=== PATIENT | female | born 1995 ===

== ENCOUNTER 2020-10-24 06:18 | Outpatient (CLI) | payer OTHER ==
[2020-10-24 10:23] VITALS: BP 104/54
== END 2020-10-24 11:15 | disposition home or self-care (01) ==
LOC: TRG 06:18 → APU 06:25 → TRG 11:15
PROVIDERS: ATTEND Obstetrics & Gynecology
DX: Z34.93 Encounter for supervision of normal pregnancy, unspecified, third trimester (principal); Z3A.38 38 weeks gestation of pregnancy
CPT/HCPCS: 59025

== ENCOUNTER 2020-10-24 21:48 | Outpatient (CLI) | payer OTHER ==
[2020-10-24 23:20] VITALS: BP 106/57
--- NOTE | 2020-10-25 00:12 | Ultrasound Report ---
ULTRASOUND OBSTETRIC LIMITED ULTRASOUND BIOPHYSICAL PROFILE INDICATION / CLINICAL INFORMATION: feb. movement. BPP, VIANEY, presentation. Clinical Gestational Age (GA) in weeks, days: 38, 5 TECHNIQUE: Transabdominal. COMPARISON: None available. FINDINGS: BREATHING MOVEMENT = 2 GROSS BODY MOVEMENT = 2 TONE = 2 QUALITATIVE AMNIOTIC FLUID VOLUME = 2 TOTAL BIOPHYSICAL SCORE = 8/8 HEART RATE (beats per minute): 132 AMNIOTIC FLUID INDEX (cm) = 15.3 (normal = 7-24 cm) PRESENTATION: Cephalic. ADDITIONAL FINDINGS: Placenta is posterior fundal. IMPRESSION: 1. Biophysical Score = 8/8 2. No acute sonographic abnormality. Signer Name: Manny Rebolledo MD Signed: 10/25/2020 12:08 AM Workstation Name: [id number]
== END 2020-10-25 00:20 | disposition home or self-care (01) ==
LOC: TRG 21:48 → APU 22:56 → TRG 10-25 00:20
PROVIDERS: ATTEND Obstetrics & Gynecology
DX: O36.8130 Decreased fetal movements, third trimester, not applicable or unspecified (principal); Z3A.38 38 weeks gestation of pregnancy
CPT/HCPCS: 59025; 76815; 76819

== ENCOUNTER 2020-10-26 05:16 | Inpatient (IN) | payer OTHER ==
[2020-10-26] MEDS ORDERED: CARBOPROST TROMETHAMINE 250 MCG/1 ML INJ IM PRN (05:43)
[2020-10-26] MEDS ORDERED: miSOPROStol 200 MCG TAB PR PRN (05:43)
[2020-10-26] MEDS ORDERED: ONDANSETRON 4 MG/2 ML INJ IV PRN (05:43)
[2020-10-26] MEDS ORDERED: AMPICILLIN/NS 2 GM/100 ML 2 GM/100 ML BAG IV ONE (05:43)
[2020-10-26] MEDS ORDERED: ACETAMINOPHEN 325 MG TAB PO PRN ×2 (05:43→07:46)
[2020-10-26] MEDS ORDERED: OXYTOCIN 10 UNIT/1 ML INJ IM PRN (05:43)
[2020-10-26] MEDS ORDERED: BUTORPHANOL 2 MG/1 ML INJ IV PRN (05:43)
[2020-10-26] MEDS ORDERED: fentaNYL 100 MCG/2 ML INJ IV PRN (05:43)
[2020-10-26] MEDS ORDERED: METHYLERGONOVINE MALEATE 0.2 MG/ML VIAL IM PRN (05:43)
[2020-10-26] MEDS ORDERED: LOPERAMIDE 2 MG CAP PO PRN (05:43)
[2020-10-26] MEDS ORDERED: MINERAL OIL 30 ML ORAL LIQD PO PRN (05:43)
[2020-10-26] MEDS ORDERED: ePHEDrine SULFATE 50 MG/1 ML INJ IV PRN (05:43)
[2020-10-26] MEDS ORDERED: TERBUTALINE 1 MG/1 ML INJ SUB-Q PRN (05:43)
[2020-10-26] MEDS ORDERED: LIDOCAINE (2%) 20 MG/1 ML VIAL 20 ML MDV INFILTRATI ONE (05:43)
[2020-10-26] MEDS ORDERED: LACTATED RINGERS 1,000 ML ONE (05:44)
[2020-10-26] MEDS ORDERED: LACTATED RINGERS 1,000 ML IV SCH (05:45)
--- NOTE | 2020-10-26 05:49 | History and Physical Report ---
History of Present Illness Date of examination: 10/26/20 Date of admission: 10/26/2020 Chief complaint: Contractions History of present illness: 25 year old presents to L&D with complaint of contractions starting at 03:00 today. Patient denies LOF or VB. Patient reports active movement. Patient states she received care at [facility] office; records are not available. Patient states her EDC is 11/02/2020. Patient states her was uncomplicated and she has a history of a vaginal . labs are not available. These will be requested from [facility] office when office opens today. Past History Past Medical History: no pertinent history Past Surgical History: other (bilateral breast augmentation) [facility] History: denies: abnormal PAP smear, chlamydia, gonorrhea, hepatitis B, hepatitis C, herpes, HIV, syphilis, trichomonas Family/Genetic History: diabetes Social history: lives with family, full code. denies: smoking, alcohol abuse, prescription drug abuse, IV drug use - Obstetrical History Expected Date of Delivery: 11/02/20 Actual Gestation: 39 Week(s) 0 Day(s) : 2 Para: 1 Hx # Term Pregnancies: 1 Number of Pregnancies: 0 Spontaneous Abortions: 0 Induced : 0 Number of Living Children: 1 Medications and Allergies Allergies Allergy/AdvReac Type Severity Reaction Status Date / Time No Known Allergies Allergy Unverified 10/24/20 07:36 Active Meds: Active Medications Acetaminophen (Acetaminophen 325 Mg Tab) 650 mg PO Q4H PRN PRN Reason: Pain, Mild (1-3) Butorphanol Tartrate (Butorphanol 2 Mg/1 Ml Inj) 1 mg IV Q2H PRN PRN Reason: Pain, Moderate(4-6) LABOR PAIN Carboprost Tromethamine (Carboprost Tromethamine 250 Mcg/1 Ml Inj) 250 mcg IM ONCE PRN PRN Reason: Uterine Bleeding Ephedrine Sulfate (Ephedrine Sulfate 50 Mg/1 Ml Inj) 10 mg IV Q2M PRN PRN Reason: Hypotension Fentanyl (Fentanyl 100 Mcg/2 Ml Inj) 100 mcg IV Q2H PRN PRN Reason: Pain,Severe (7-10) LABOR PAIN Oxytocin/Sodium Chloride (Pitocin/Ns 30 Unit/500ml) 30 units in 500 mls @ 2 mls/hr IV TITR LATONIA; Protocol Lactated Ringer's (Lactated Ringers) 1,000 mls @ 125 mls/hr IV DIRECT LATONIA Oxytocin/Sodium Chloride (Pitocin/Ns 30 Unit/500ml) 30 units in 500 mls @ 40 mls/hr IV TITR LATONIA; Protocol Ampicillin Sodium (Ampicillin/Ns 2 Gm/100 Ml) 2 gm in 100 mls @ 100 mls/hr IV ONCE ONE; Protocol Stop: 10/26/20 06:42 Lidocaine (Lidocaine (2%) 20 Mg/1 Ml Vial 20 Ml Mdv) 20 ml INFILTRATI ONCE ONE Stop: 10/26/20 05:44 Loperamide HCl (Loperamide 2 Mg Cap) 2 mg PO ONCE PRN PRN Reason: give with Hemabate Methylergonovine Maleate (Methylergonovine Maleate 0.2 Mg/Ml Vial) 0.2 mg IM ONCE PRN PRN Reason: Uterine Bleeding Mineral Oil (Mineral Oil 30 Ml Oral Liqd) 30 ml PO QHS PRN PRN Reason: Constipation Misoprostol (Misoprostol 200 Mcg Tab) 800 mcg PA ONCE PRN PRN Reason: Uterine Bleeding Ondansetron HCl (Ondansetron 4 Mg/2 Ml Inj) 4 mg IV Q8H PRN PRN Reason: Nausea And Vomiting Oxytocin (Oxytocin 10 Unit/1 Ml Inj) 10 unit IM ONCE PRN PRN Reason: Uterine Bleeding Terbutaline Sulfate (Terbutaline 1 Mg/1 Ml Inj) 0.25 mg SUB-Q ONCE PRN PRN Reason: Hyperstimulation/Hypertonicity Review of Systems All systems: negative (contractions) - Physical Exam Abdomen: Positive: normal appearance, soft. Negative: distention, tenderness, guarding, rigidity Genitourinary (Female): Positive: normal external genitalia, normal perenium. Negative: perineal/vulvar lesions Vagina: Positive: normal moisture Uterus: Positive: enlarged. Negative: tender Anus/Rectum: Positive: normal perianal skin Extremities: Positive: normal. Negative: tenderness, edema - Obstetrical FHR: category 1 Uterine Contraction Monitor Mode: External Cervical Dilatation: 8 Cervical Effacement Percentage: 90 station: -1 Uterine Contraction Pattern: Regular Uterine Contraction Intensity: Strong/Firm Results All other labs normal. Assessment and Plan A: at 39 weeks gestation. Active advanced labor. GBS unknown. No records available. P: Admit. Continuous EFM. GBS prophylaxis. Requests records from [facility] office when office opens today. Anticipate vaginal .
[2020-10-26] MEDS ORDERED: OXYTOCIN DRIP 30 UNITS/500 ML BAG IV SCH ×2 (06:00)
[2020-10-26 06:39] LABS: Hematocrit 41.8 % (30.3-42.9); Hemoglobin 13.5 gm/dl (10.1-14.3); Mean Corpuscular HGB Conc 32 % (30-34); Mean Corpuscular Volume 90 fl (79-97); Platelet Count 266 K/mm3 (140-440); Red Blood Count 4.66 M/mm3 (3.65-5.03); Red Cell Distribution Width 13.7 % (13.2-15.2)
--- NOTE | 2020-10-26 07:44 | Procedure Note ---
OB Delivery Note - Delivery Date of Delivery: 10/26/20 Surgeon: BELEN GALLARDO Estimated blood loss: other (450 cc) - Vaginal Delivery presentation: vertex Delivery position: OA Intrapartum events: shoulder dystocia Delivery induction: none Delivery augmentation: rupture of membranes Delivery monitor: external FHT, external uterine Route of delivery: Delivery placenta: manual Delivery cord: 3 umbilical vessels Episiotomy: none Delivery laceration: none Anesthesia: none Delivery comments: Spontaneous vaginal delivery at 07:08 of liveborn female weighing 7 lb. 7 oz. over intact perineum with apgars of 8/9. Tight nuchal cord times 1, manually reduced on perineum. Left anterior shoulder dystocia resoved with McRobert's maneuver, suprapubic pressure, and delivery of posterior shoulder. Head to body interval time less than 30 seconds. Baby placed skin to skin with mom immediately after delivery, dried, stimulated, and suctioned with bulb syringe. Spontaneous cry and respirations. 3 vessel cord double clamped and cut. Baby taken to radiant warmer for further suctioning. Cord blood obtained. Gush of blood after delivery. Pitocin started IV; manual removal of placenta and membranes which appear intact (manual removal due to uterine bleeding and failure of placenta to spontaneously deliver). Fundus firmed with bimanual massage. Cytotec 800 micrograms given rectally for uterine atony. Vaginal sweep negative. No lacerations noted. Sponge count correct. Mother and baby stable. Will obtain US to check for any retained placental fragments due to manual removal of placenta. Placenta to pathology.
[2020-10-26] MEDS ORDERED: HYDROcodone/ACETAMINOPHEN 5-325 MG TAB PO PRN (07:46)
[2020-10-26] MEDS ORDERED: WITCH HAZEL/ GLYCERIN PAD TP PRN (07:46)
[2020-10-26] MEDS ORDERED: LANOLIN/ZINC/DIMETHICONE (LANSINOH) 7 GM TP PRN (07:46)
[2020-10-26] MEDS ORDERED: MAGNESIUM HYDROXIDE (MOM) ORAL LIQD UDC PO PRN (07:46)
[2020-10-26] MEDS ORDERED: AMPICILLIN/NS 1 GM/50 ML 1 GM/50 ML BAG IV SCH (10:00)
--- NOTE | 2020-10-26 11:56 | Ultrasound Report ---
ULTRASOUND PELVIS INDICATION: Check for retained placenta. TECHNIQUE: Transabdominal. Duplex Color Doppler used: Yes. COMPARISON: None available FINDINGS: Uterus: Present. Size: 20.5 x 9.7 x 11.5 cm cm. Endometrial complex: Thickened and heterogeneous measuring 20 mm. Mass lesions: None. Additional findings: No increased color Doppler flow within the endometrial complex. Right Ovary -- not visualized secondary to bowel gas Left Ovary-- not visualized secondary to bowel gas Urinary Bladder: Normal. Free Fluid: None. Additional Findings: None. IMPRESSION: 1. Thickened endometrial complex in a uterus. It is difficult to distinguish a uterus containing clots from retained products of conception. Clinical correlation is recommended. No definite hypervascularity seen however. Signer Name: Frantz Lee MD Signed: 10/26/2020 11:51 AM Workstation Name: [id number]
[2020-10-26 20:52] LABS: Hematocrit 28.9 % (30.3-42.9); Hemoglobin 9.8 gm/dl (10.1-14.3)
[2020-10-26] MEDS: DOCUSATE SODIUM 100 MG CAP PO SCH (21:42)
[2020-10-26] MEDS: FERROUS SULFATE 325 MG TAB PO SCH (21:42)
[2020-10-26] MEDS: IBUPROFEN 600 MG TAB PO SCH (21:43)
[2020-10-27] MEDS: IBUPROFEN 600 MG TAB PO SCH ×2 (06:01→10:03)
[2020-10-27] MEDS: DOCUSATE SODIUM 100 MG CAP PO SCH (10:02)
[2020-10-27] MEDS: FERROUS SULFATE 325 MG TAB PO SCH (10:02)
--- NOTE | 2020-10-27 10:44 | Progress Note ---
Assessment and Plan A: day 1 S/P . Anemia. Thickened endometrium on pelvic US. P: Supplement with oral iron. Oral Methergine series. Subjective - Subjective Date of service: 10/27/20 Principal diagnosis: day 1 S/P Interval history: Doing well. Reports moderate lochia with several small clots. Denies heavy bleeding. Pelvic US shows thickened endometrium. Patient reports: appetite normal, voiding normally, flatus, ambulating normally, no dizzy ambulation, no pain well controlled, no nauseated : doing well Objective - Vital Signs Latest vital signs: Vital Signs Temp Pulse Resp BP BP Pulse Ox Pulse Ox 10/27/20 08:00 100 10/27/20 07:35 97.8 F 83 16 106/68 97 10/27/20 06:51 18 10/27/20 06:01 18 10/27/20 01:27 98.2 F 88 18 101/54 94 10/26/20 22:43 18 10/26/20 21:45 100 10/26/20 21:43 18 10/26/20 16:14 99.1 F 100 H 100/55 97 10/26/20 12:41 98.2 F 104 H 20 103/65 98 Intake and Output 10/26/20 10/27/20 10/27/20 23:59 07:59 15:59 Intake Total 1320 480 Output Total 550 Balance 770 480 Intake: Oral 720 480 Intake, Free Water 600 Output: Urine 550 Void 550 Other: Total, Intake Amount 240 240 Total, Output Amount 250 # Voids Void 1 1 - Exam Cardiovascular: Present: Regular rate Lungs: Present: Clear to auscultation Abdomen: Present: normal appearance, soft, normal bowel sounds. Absent: distention, tenderness, guarding, rigidity Uterus: Present: normal, firm, fundal height below umbilicus. Absent: bogginess, tenderness Extremities: Absent: tenderness, edema - Labs Labs: Abnormal lab results 10/26/20 Range/Units 19:51 Hgb 9.8 L D (10.1-14.3) gm/dl Hct 28.9 L D (30.3-42.9) %
[2020-10-27] MEDS ORDERED: METHYLERGONOVINE 0.2 MG TABLET PO SCH (11:00)
[2020-10-27 17:53] VITALS: BP 112/62
--- NOTE | 2020-10-27 18:29 | Ultrasound Report ---
ULTRASOUND PELVIS INDICATION: follow up US. TECHNIQUE: Transabdominal. Duplex Color Doppler used: Yes. COMPARISON: Previous day. FINDINGS: Uterus: Present. Size: 9.7 cm. cm. Endometrial complex: Thickened, heterogeneous endometrial stripe complex area at the lower uterine se gment is likely a clot. Mass lesions: None. Additional findings: None. Right Ovary --not evaluated. Left Ovary--not evaluated. Urinary Bladder: Normal. Free Fluid: None. Additional Findings: None. IMPRESSION: Persistent thickened, heterogeneous endometrial stripe with more focal thickening at the lower uterine segment which is likely a clot. This is likely passed from the more proximal endometriu m. Signer Name: J Carlos Hercules MD Signed: 10/27/2020 6:25 PM Workstation Name: [id number]
--- NOTE | 2020-10-27 18:59 | Discharge Summary ---
Providers - Providers Date of Admission: 10/26/20 05:51 Date of discharge: 10/27/20 Attending physician: IRENE CASON MD Primary care physician: IRENE CASON MD Hospitalization Reason for admission: active labor Delivery: Episiotomy: none Laceration: none complications: none Discharge diagnosis: IUP at term delivered baby: female Pertinent studies: Labs, ultrasound. Hospital course: Stable hospital course. Condition at discharge: Good Disposition: DC-01 TO HOME OR SELFCARE - Discharge Diagnoses (1) Term delivered Status: Acute (2) Anemia Status: Acute Plan - Provider Discharge Summary Activity: routine, no sex for 6 weeks, no heavy lifting 4 weeks, no strenuous exercise Diet: routine Instructions: routine Additional instructions: Continue taking your vitamin and iron supplements at home. Follow up at [facility] office in 2 days. Call your doctor immediately for: * Fever > 100.5 * Heavy vaginal bleeding ( >1 pad per hour) * Severe persistent headache * Shortness of breath * Reddened, hot, painful area to leg or breast - Follow up plan Follow up: IRENE CASON MD [Primary Care Provider] - 48 Hours
== END 2020-10-27 20:25 | disposition home or self-care (01) | DRG 775 ==
LOC: TRG 05:16 → APU 05:17 → TRG 05:50 → OBSVTOIN 05:51 → LD 05:51 → OB 09:21
PROC: 10E0XZZ Delivery of Products of Conception, External Approach (ICD-10-PCS; principal; 2020-10-26)
DX: O66.0 Obstructed labor due to shoulder dystocia (principal); Z37.0 Single live birth; O99.03 Anemia complicating the puerperium; Z3A.39 39 weeks gestation of pregnancy; Z20.822 Contact with and (suspected) exposure to COVID-19
CPT/HCPCS: 36415; 59025; 76815; 76819; 76857; 85014; 85018; 85027; 86592; 86850; 86900; 86901; 88307; G0378; J0290; J3010; J7120; U0003